=== PATIENT | female | born 1945 | race Caucasian/White ===

== ENCOUNTER 2022-01-02 13:11 | Emergency (ER) | payer MEDICARE, BC ==
[2022-01-02 14:15] LABS: #Monocytes 0.6 10x3/uL (0.0-1.1); #Neutrophils 6.8 10x3/uL (1.5-8.4); %Basophils 0.4 % (0.0-2.0); %Eosinophils 0.1 % (0.0-6.0); %Lymphocytes 8.3 % (18.0-47.0); %Monocytes 7.5 % (0.0-10.0); %Neutrophils 83.5 % (40.0-75.0); Hemoglobin 12.9 g/dL (12.0-15.5); Mean Corpuscular HGB CONC 34.5 g/dL (32.0-36.0); Mean Corpuscular Hemoglobin 32.3 pg (27.0-33.0); Mean Corpuscular Volume 93.5 fl (81.6-98.3); Mean Platelet Volume 9.3 fl (7.4-10.4); Platelet Count 267 10x3/uL (150-450); RBC Distribution Width 13.3 % (11.5-14.5); White Blood Cell (WBC) Count 8.1 10x3/uL (3.5-10.5)
[2022-01-02 14:34] LABS: ALT (SGPT) 18 U/L (8-55); AST (SGOT) 21 U/L (5-34); Albumin 4.3 g/dL (3.4-4.8); Alkaline Phosphatase 36 U/L (40-110); Anion Gap 19 mmol/L (10-20); BUN (Urea Nitrogen) 41 mg/dL (9.8-20.1); Bilirubin, Total 0.5 mg/dL (0.2-1.2); CK (CPK) 62 U/L (29-168); Calc. Creatinine Clearance 0 mL/min (70-130); Calcium 10.1 mg/dL (7.8-10.44); Carbon Dioxide 25 mmol/L (23-31); Chloride 92 mmol/L (98-107); Estimated GFR 61; Globulin 3.5 g/dL (2.4-3.5); Glucose 111 mg/dL (83-110); Magnesium 2.3 mg/dL (1.6-2.6); Potassium 3.6 mmol/L (3.5-5.1); Protein, Total 7.8 g/dL (5.8-8.1); Sodium 132 mmol/L (136-145)
== END 2022-01-02 15:20 | disposition home or self-care (01) ==
LOC: CSHERS 13:11
DX: R00.2 Palpitations (principal)
CPT/HCPCS: 80053; 82550; 83735; 84484; 85025; 93005

== ENCOUNTER 2024-02-15 08:03 | Day surgery (SDC) | payer MEDICARE ==
[2024-02-15 12:11] VITALS: TEMP 99.2
== END 2024-02-15 11:37 | disposition home or self-care (01) ==
LOC: CSHSDC 08:03
PROVIDERS: ATTEND Internal Medicine Cardiovascular Disease
PROC: 5A2204Z Restoration of Cardiac Rhythm, Single (ICD-10-PCS; principal; 2024-02-15)
PROC: B246ZZ4 Ultrasonography of Right and Left Heart, Transesophageal (ICD-10-PCS; 2024-02-15)
DX: I48.92 Unspecified atrial flutter (principal); I48.0 Paroxysmal atrial fibrillation; I25.10 Atherosclerotic heart disease of native coronary artery without angina pectoris; E03.9 Hypothyroidism, unspecified; I10 Essential (primary) hypertension; E78.5 Hyperlipidemia, unspecified; I11.0 Hypertensive heart disease with heart failure; I50.20 Unspecified systolic (congestive) heart failure; I42.9 Cardiomyopathy, unspecified; I34.0 Nonrheumatic mitral (valve) insufficiency; Z79.01 Long term (current) use of anticoagulants; Z79.899 Other long term (current) drug therapy; Z88.0 Allergy status to penicillin; Z88.8 Allergy status to other drugs, medicaments and biological substances
CPT/HCPCS: 92960; 93005; 93010; 93312

== ENCOUNTER 2024-03-23 21:16 | Inpatient (IN) | payer MEDICARE ==
[2024-03-24 01:15] LABS: #Basophils 0.01 10x3/uL (0.0-0.2); #Monocytes 0.73 10x3/uL (0.0-1.1); #Neutrophils 8.26 10x3/uL (1.5-8.4); %Basophils 0.1 % (0.0-2.0); %Lymphocytes 5.3 % (18.0-47.0); %Monocytes 7.7 % (0.0-10.0); %Neutrophils 86.6 % (40.0-75.0); Hematocrit 33.5 % (34.9-44.5); Hemoglobin 10.4 g/dL (12.0-15.5); Mean Corpuscular Hemoglobin 31.6 pg (27.0-33.0); Mean Corpuscular Volume 101.8 fL (81.6-98.3); Mean Platelet Volume 10.2 fL (7.4-10.4); Platelet Count 184 10x3/uL (150-450); RBC Distribution Width 14.6 % (11.5-14.5); Red Blood Cell (RBC) Count 3.29 10x6/uL (3.90-5.03); White Blood Cell (WBC) Count 9.5 10x3/uL (3.5-10.5)
[2024-03-24 01:29] LABS: Anion Gap 16 mmol/L (10-20); BUN (Urea Nitrogen) 25 mg/dL (9.8-20.1); Calc. Creatinine Clearance 0 mL/min (70-130); Calcium 8.9 mg/dL (7.8-10.44); Carbon Dioxide 19 mmol/L (23-31); Chloride 108 mmol/L (98-107); Estimated GFR 67; Glucose 119 mg/dL (83-110); Potassium 4.2 mmol/L (3.5-5.1); Sodium 139 mmol/L (136-145)
[2024-03-24 01:37] LABS: Troponin I 0.099 ng/mL (< 0.028)
[2024-03-24 01:50] LABS: Thyroid Stimulating Hormone 1.5414 uIU/mL (0.35-4.94)
[2024-03-24] MEDS ORDERED: Furosemide 20 MG (2 mL) VIAL SLOW IVP SCH (06:00)
[2024-03-24] MEDS: Furosemide 40 MG (4 mL) VIAL SLOW IVP SCH (06:20)
[2024-03-24] MEDS: Levothyroxine Sodium 100 MCG TAB PO SCH (06:20)
[2024-03-24] MEDS: Potassium Chloride 20 MEQ TAB PO SCH (08:39)
[2024-03-24] MEDS: Acetaminophen 325 MG TAB PO PRN (08:39)
[2024-03-24] MEDS: Ferrous Sulfate 325 MG TAB PO SCH (08:40)
[2024-03-24] MEDS: Carvedilol 6.25 MG TAB PO SCH (08:40)
[2024-03-24] MEDS ORDERED: BLACK PEPPER PO SCH (09:00)
[2024-03-24] MEDS ORDERED: FISH OIL PO SCH (09:00)
[2024-03-24] MEDS ORDERED: TURMERIC PO SCH (09:00)
[2024-03-24] MEDS ORDERED: CINNAMON BARK 500 MG PO SCH (09:00)
[2024-03-24] MEDS ORDERED: OMEGA PO SCH (09:00)
[2024-03-24] MEDS ORDERED: FATTY ACIDS PO SCH (09:00)
[2024-03-24] MEDS ORDERED: [UNRECOGNIZED DRUG - OTHER] PO SCH (09:00)
[2024-03-24] MEDS ORDERED: GINGER PO SCH (09:00)
[2024-03-24] MEDS ORDERED: CRANBERRY FRUIT EXTRACT 500 MG PO SCH (09:00)
[2024-03-24] MEDS ORDERED: [UNRECOGNIZED DRUG - OTHER] PO SCH (09:00)
[2024-03-24] MEDS: Fluticasone Propionate Nasal Spray 16 gm Bottle NASAL SCH (09:24)
[2024-03-24] MEDS: CO Q-10 CAPSULE 50 MG PO SCH (09:25)
[2024-03-24] MEDS: Folic Acid 1 MG TAB PO SCH (09:25)
[2024-03-24] MEDS: Lisinopril 2.5 MG TAB PO SCH (09:25)
[2024-03-24] MEDS: Aspirin 81 mg Enteric Coated Tablet PO SCH (09:25)
[2024-03-24] MEDS: Amiodarone 200 MG TAB PO SCH (09:25)
[2024-03-24] MEDS: Spironolactone 25 MG TAB PO SCH ×2 (09:25→11:35)
[2024-03-24] MEDS: Enoxaparin 40 MG (0.4 mL) SYRINGE SC SCH (09:25)
[2024-03-24] MEDS: Multivitamin W/ Minerals 1 TAB PO SCH (09:26)
[2024-03-24] MEDS: Digoxin 0.125 MG TAB PO SCH (12:23)
[2024-03-24 13:07] LABS: Hemoglobin A1c 5.5 % (4.0-6.0)
[2024-03-24] MEDS: Carvedilol 12.5 MG TAB PO SCH (18:36)
[2024-03-24] MEDS ORDERED: Amiodarone 200 MG TAB PO SCH (21:00)
[2024-03-25 03:48] LABS: Hematocrit 28.8 % (34.9-44.5); Hemoglobin 9.4 g/dL (12.0-15.5); Mean Corpuscular HGB CONC 32.6 g/dL (32.0-36.0); Mean Corpuscular Hemoglobin 32.4 pg (27.0-33.0); Mean Corpuscular Volume 99.3 fL (81.6-98.3); Mean Platelet Volume 10.3 fL (7.4-10.4); Platelet Count 147 10x3/uL (150-450); RBC Distribution Width 14.6 % (11.5-14.5); White Blood Cell (WBC) Count 5.4 10x3/uL (3.5-10.5)
[2024-03-25 04:03] LABS: Anion Gap 15 mmol/L (10-20); BUN (Urea Nitrogen) 26 mg/dL (9.8-20.1); Calc. Creatinine Clearance 53 mL/min (70-130); Carbon Dioxide 21 mmol/L (23-31); Chloride 110 mmol/L (98-107); Estimated GFR 74; Glucose 116 mg/dL (83-110); Potassium 3.7 mmol/L (3.5-5.1); Sodium 142 mmol/L (136-145)
[2024-03-25 08:21] VITALS: TEMP 98.8
[2024-03-25] MEDS: Furosemide 40 MG TAB PO SCH (08:56)
[2024-03-25] MEDS: Calcium Carbonate 600 MG + Vit D TAB PO SCH (08:56)
[2024-03-25] MEDS: Spironolactone 25 MG TAB PO SCH (08:57)
[2024-03-25] MEDS: Digoxin 0.125 MG TAB PO SCH (09:02)
[2024-03-25 13:33] VITALS: BP 111/76
== END 2024-03-25 12:45 | disposition home or self-care (01) | DRG 291 ==
LOC: UNDOADMIN 23:17 → CSHTELE 23:17
PROVIDERS: ADMIT Family Medicine; ATTEND Family Medicine
DX: I50.23 Acute on chronic systolic (congestive) heart failure (principal); J96.01 Acute respiratory failure with hypoxia; I42.0 Dilated cardiomyopathy; I48.92 Unspecified atrial flutter; I48.19 Other persistent atrial fibrillation; E89.0 Postprocedural hypothyroidism; M81.0 Age-related osteoporosis without current pathological fracture; D53.9 Nutritional anemia, unspecified; M19.90 Unspecified osteoarthritis, unspecified site; Z88.0 Allergy status to penicillin; Z88.2 Allergy status to sulfonamides; Z88.8 Allergy status to other drugs, medicaments and biological substances; Z79.01 Long term (current) use of anticoagulants; Z79.899 Other long term (current) drug therapy; Z95.810 Presence of automatic (implantable) cardiac defibrillator
CPT/HCPCS: 36415; 71045; 80048; 80053; 82607; 83036; 83735; 83880; 84443; 84484; 85025; 85027; 93005; 93010; 93306; 94660; 94760; 94762; 96374; J1650; J1940

== ENCOUNTER 2025-03-20 12:16 | Outpatient (CLI) | payer MEDICARE | END 2025-03-20 12:17 | disposition home or self-care (01) | LOC: CSHRAD 12:16 | DX: M54.2 Cervicalgia (principal); M47.812 Spondylosis without myelopathy or radiculopathy, cervical region | CPT/HCPCS: 72040 ==